=== PATIENT | female | born 1985 | race Caucasian/White ===

== ENCOUNTER → 2017-10-24 | Outpatient (CLI) | payer OTHER | END | disposition home or self-care (01) | LOC: LAB 11:54 | PROVIDERS: ATTEND Obstetrics & Gynecology Reproductive Endocrinology | DX: E23.6 Other disorders of pituitary gland (principal) | CPT/HCPCS: 36415; 82397 ==

== ENCOUNTER 2019-03-14 07:42 | Outpatient (CLI) | payer OTHER ==
[~2019-03-14] VITALS: Ht 170.2 cm; Wt 74.5 kg
[2019-03-14 08:08] VITALS: BP 116/70
[2019-03-14] MEDS ORDERED: PREN-3 PO (08:34)
[2019-03-14] MEDS ORDERED: ASPI-496 PO (08:34)
== END 2019-03-14 09:30 | disposition home or self-care (01) ==
LOC: LDOP 07:42
PROVIDERS: ATTEND Obstetrics & Gynecology
DX: Z34.83 Encounter for supervision of other normal pregnancy, third trimester (principal); Z88.5 Allergy status to narcotic agent; Z88.8 Allergy status to other drugs, medicaments and biological substances; Z3A.33 33 weeks gestation of pregnancy
CPT/HCPCS: 59025; 99211; G0463